=== PATIENT | female | born 1990 | race Caucasian/White ===

== ENCOUNTER 2022-03-13 13:16 | Emergency (ER) | payer MEDICAID ==
[~2022-03-13] VITALS: Ht 167.6 cm; Wt 70.5 kg
[~2022-03-13 13:16] MED LIST: PNV
[2022-03-13] MEDS ORDERED: PNV1TABL89 PO (13:32)
[2022-03-13 13:55] VITALS: BP 135/73
[2022-03-13] MEDS ORDERED: LIDOCAINE 1% 10 ML VIAL SQ ONE (14:15)
[2022-03-13] MEDS ORDERED: ACETAMINOPHEN 500 MG TABLET PO ONE (14:15)
[2022-03-13] MEDS ORDERED: IBUPROFEN 600 MG TABLET PO ONE (14:15)
[2022-03-13] MEDS ORDERED: BACITRACIN 28 GM OINTMENT TP ONE (14:15)
== END 2022-03-13 16:25 | disposition home or self-care (01) ==
LOC: EMS 13:18
DX: O90.89 Other complications of the puerperium, not elsewhere classified (principal); S91.201A Unspecified open wound of right great toe with damage to nail, initial encounter; B35.1 Tinea unguium; X58.XXXA Exposure to other specified factors, initial encounter; Y93.89 Activity, other specified; Y92.89 Other specified places as the place of occurrence of the external cause; Y99.8 Other external cause status
CPT/HCPCS: 99284; 11730; J3490; 64450